=== PATIENT | male | born 1975 | race Caucasian/White ===

== ENCOUNTER 2024-04-19 10:07 | Outpatient (AMB) | payer OTHER, SELFPAY ==
--- NOTE | 2024-04-19 10:22 | MHC.OFFWIV ---
Intake Vital Signs 04/19/24 10:24 Weight 244 lb BP 140/100 H Blood Pressure Location Rt brachial Position Sitting Pulse 81 Pulse Source Pulse Oximeter Pulse Oximetry (%) 98 Oxygen Delivery Method Room Air Intake Visit Reasons: [employer] WC injury Intake Note: Patient here because he stepped on a piece of wood while at work and the other foot hit it and stubbed his toes on right foot, later on in the day toe started to hurt and noticed it was inflamed. Patient Tobacco Use Status: Never used Tobacco Allergies codeine [CODEINE] Allergy (Unknown, Unverified 05/08/20 15:20) UNKNOWN Do you need a note to return to daycare/school/sports/work: No HPI HPI Comments History of Present Illness Details Patient is a 49-year-old male looking for a return to work note. He states that he injured his right great toe 4 days ago while taking some stuff out to the dumpster at work. He states he hit his toe on a piece of wood I did not think much of it. Later that night it became more painful, the next day he noticed it was swollen and a little bit bloody. He noticed by yesterday that the swelling had gone down, the pain was gone and he has full range of motion in his toe. He states he feels he can go back to work doing his regular job with no restrictions. He has some paperwork for me to fill out today [facility] Social History Patient Tobacco Use Status: Never used Tobacco Review of Systems Const All systems reviewed & are unremarkable except as noted in HPI and below Physical Exam Vital Signs: Last Vital Signs Pulse 81 04/19/24 10:24 BP 140/100 H 04/19/24 10:24 Pulse Ox 98 04/19/24 10:24 Oxygen Delivery Method Room Air 04/19/24 10:24 Const General: cooperative, healthy appearing, comfortable, no acute distress and well developed Orientation/consciousness: patient oriented x3 Limitations: no limitations Neuro General: patient oriented x3 Extrem Left lower extremity: foot Details: normal capillary refill, normal to inspection, toes with normal ROM, no edema, vascular exam Details: normal capillary refill and tendon exam Details: active flexion normal and active extension normal; no tenderness, no unusual warmth, no abrasions, no lacerations and no ecchymosis Assessment & Plan Assessment & Plan (1) Return to work exam: Code(s): Z76.89 - Persons encountering health services in other specified circumstances Plan: Filled out paperwork as patient requested, okay to return to work, physical exam unremarkable and patient states he feels his injury is completely resolved. Plan see above Coding Level of Care Code New Pt Level 4 (15368) Diagnoses Return to work exam Z76.89
[2024-04-19 10:24] VITALS: BP 140/100; PULSE 81; O2SAT 98
== END 2024-04-19 11:09 | disposition home or self-care (01) ==
PROVIDERS: Visit Provider Physician Assistant
DX: M79.674 Pain in right toe(s) (principal)
CPT/HCPCS: 99202

== ENCOUNTER 2024-06-04 14:22 | Outpatient (AMB) | payer OTHER, SELFPAY ==
--- NOTE | 2024-06-04 14:26 | MHC.OFFWIV ---
Intake Vital Signs 06/04/24 14:27 06/04/24 14:57 Weight 239 lb BP 160/110 H 120/78 Blood Pressure Location Rt brachial Position Sitting Pulse 71 Pulse Source Pulse Oximeter Pulse Oximetry (%) 98 Oxygen Delivery Method Room Air Intake Visit Reasons: EP coughing up blood since last Tuesday Intake Note: Patient here for because he has been coughing up blood since tuesday. Patient Tobacco Use Status: Never used Tobacco Allergies codeine [CODEINE] Allergy (Unknown, Unverified 06/04/24 14:28) UNKNOWN Do you need a note to return to daycare/school/sports/work: No HPI EP coughing up blood since last Tuesday HPI Details This note is constructed using voice recognition software. While every effort has been made to ensure accuracy, scientific helper errors may have been included. The patient is a 49 year old male who presents to the clinic today with hemoptysis since Tuesday. He reports that on he got some extremely bad news including multiple family members in crisis, a loss of some friends, and additional work stressors. He has been taking aspirin every day for the last several decades, but on this day he developed a headache due to the extra stress, so he took a 5 aspirin. The next day he developed some epigastric pain, and when he coughed, he had specks of blood in his sputum. This occurred for the next couple of days, resolving last night. He reports that he spoke with his about this, and she advised him to stop taking the aspirin, or anything that he normally does in his daily routine to help alleviate the issue. He drinks 6-8 cups of coffee per day, and smokes cigars on occasion. He denies any nausea, vomiting, diarrhea, hematemesis, hematochezia, fevers, chills, body aches. [facility] Social History Patient Tobacco Use Status: Never used Tobacco Review of Systems Const All systems reviewed & are unremarkable except as noted in HPI and below Physical Exam Vital Signs: Last Vital Signs Pulse 71 06/04/24 14:27 BP 120/78 06/04/24 14:57 Pulse Ox 98 06/04/24 14:27 Oxygen Delivery Method Room Air 06/04/24 14:27 Const General: cooperative, healthy appearing, comfortable, no acute distress and alert Orientation/consciousness: patient oriented x3 Limitations: no limitations HEENT Head: Yes normal to inspection and Yes normocephalic Ears: hearing grossly normal bilaterally General nose exam: Normal external nose present and Epistaxis present (Signs of dried epistaxis) on the right Face and sinus: Yes normal facial exam and Yes sinuses nontender Mouth: Normal oral and palatal mucosa present and tongue normal Teeth and gingiva: dentition normal Throat: Yes posterior oropharynx normal Eyes General: appearance normal, both eyes and all related structures Neck Neck: Yes normal visual inspection, Yes full ROM and Yes no lymphadenopathy Resp Effort & Inspection: normal respiratory effort and able to speak in complete sentences Auscultation: clear to auscultation bilaterally Cardio Jugular venous distension: no JVD Palpation: normal PMI Rate: regular rate Heart sounds: S1 normal heart sound present, S2 normal heart sound present, no click, no gallops, no murmurs and no rubs GI Inspection: Yes normal to inspection Palpation (GI): Soft to palpation and nontender Percussion: Yes normal to percussion Auscultation: normal bowel sounds Skin General skin exam: no rashes or lesions noted, elasticity normal and turgor normal Neuro General: patient oriented x3 Extrem General: Yes normal to inspection, Yes full ROM, Yes capillary refill normal and Yes normal exam except as noted Psych Appearance: grossly normal Mental Status: mental status grossly normal Speech and movement: Normal speech and movement present Affect: normal affect Assessment & Plan Assessment & Plan (1) Hemoptysis: Code(s): R04.2 - Hemoptysis Plan: Reassuring physical examination today, with signs of bleeding from nasal cavity. Advised patient to stop taking his aspirin daily, and reviewed appropriate dosing of aspirin as this is likely contributing to his source of bleeding. Advised use of saline nasal spray to help reduce symptoms as needed. Additionally advised consideration of cessation of cigar smoking as well as reduction in caffeine intake. Discussed consideration of chest x-ray and additional workup, which we deferred as we have identified a source. Advised him that it should symptoms persist, or recur, it would likely benefit him to obtain a chest x-ray as well as additional testing. Plan See above for full details and plan. He initially had elevated blood pressure, however after talking to him and examining him, his blood pressure did decrease significantly. Discussed how this may be a manifestation of his mental health. Patient has expressed long-term symptoms of depression, without any plans of self-harm. Advised patient to obtain primary care provider, which he agreed to do so. We were able to connect him with a primary care provider and obtain an appointment with a new PCP through our facilities. Coding Level of Care Code Est Pt Level 3 (66356) Diagnoses Hemoptysis R04.2
[2024-06-04 14:27] VITALS: BP 160/110; PULSE 71; O2SAT 98
[2024-06-04 14:57] VITALS: BP 120/78
== END 2024-06-04 15:01 | disposition home or self-care (01) ==
PROVIDERS: Visit Provider Registered Nurse
DX: R04.2 Hemoptysis (principal)

== ENCOUNTER → 2024-06-04 14:22 | Outpatient (BNVA) | payer OTHER, SELFPAY | PROVIDERS: Visit Provider Registered Nurse | DX: R04.2 Hemoptysis (principal) | CPT/HCPCS: 99212 ==